=== PATIENT | female | born 2005 | race Caucasian/White ===

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

== ENCOUNTER → 2023-04-17 | Outpatient (CLI) | payer BC, OTHER | LOC: M WUC 12:22 | PROVIDERS: ATTEND Nurse Practitioner Family | DX: M25.572 Pain in left ankle and joints of left foot (principal) ==

== ENCOUNTER → 2024-03-15 | Outpatient (CLI) | payer BC, OTHER | LOC: M WUC 13:02 | PROVIDERS: ATTEND Nurse Practitioner Family | DX: R14.0 Abdominal distension (gaseous) (principal) ==

== ENCOUNTER → 2024-09-23 | Outpatient (REF) | payer BC ==
[~2024-09-23] MED LIST: ASCO500C3 PO; B-12100010 PO; ESTA0.25; LINZ72CA PO; META0.52 PO; VITA100093 PO
[2024-09-23 18:03] LABS: BASO % 0.5 % (0.0-1.0); EOS # 0.1 10^3/uL (0.0-0.5); EOS % 1.6 % (0.0-3.0); HEMOGLOBIN 12.1 g/dl (12.0-15.5); LYMPH # 2.2 10^3/uL (1.5-5.0); LYMPH % 26.2 % (24.0-44.0); MEAN CORPUSCULAR HEMOGLOBIN 25.8 pg (27.0-33.0); MEAN CORPUSCULAR VOLUME 83.2 fl (80.0-96.0); MONO # 0.5 10^3/uL (0.0-0.8); MONO % 6.4 % (2.0-8.0); NEUTROPHILS # 5.4 10^3/uL (1.5-8.5); NEUTROPHILS % 65.1 % (36.0-66.0); PLATELET COUNT, AUTOMATED 271 10^3/uL (150-450); RED BLOOD COUNT 4.69 10^6/uL (4.00-5.40); WHITE BLOOD COUNT 8.3 10^3/uL (4.0-10.0)
[2024-09-23 18:22] LABS: THYROID STIMULATING HORMONE 1.569 uIU/ML (0.55-4.78)
[2024-09-23 18:25] LABS: FREE T4 1.13 NG/DL (0.89-1.76)
== END ==
LOC: M SFHCADAM 15:06
PROVIDERS: ATTEND Physician Assistant Medical
DX: F41.1 Generalized anxiety disorder (principal)

== ENCOUNTER 2024-10-21 07:51 | Day surgery (SDC) | payer BC ==
[~2024-10-21] VITALS: Ht 170.2 cm; Wt 53.8 kg
[~2024-10-21 07:51] MED LIST changes: -ESTA0.25; +ESTA0.25 PO; +LEXA1TAB PO; +LIDOCAINE 2% 100MG/5ML SDV (FOR ANES.) As Ordered ONE; +propofoL 200 MG/20 ML VIAL As Ordered ONE
[2024-10-21 09:32] VITALS: TEMP 97.2
[2024-10-21 09:53] VITALS: BP 109/59; O2SAT 100
== END 2024-10-21 10:02 | disposition home or self-care (01) ==
LOC: M OPP 07:51
PROVIDERS: ATTEND Internal Medicine Gastroenterology
DX: K58.1 Irritable bowel syndrome with constipation (principal); K64.8 Other hemorrhoids; Z79.899 Other long term (current) drug therapy

== ENCOUNTER → 2024-12-17 | Outpatient (REF) | payer OTHER ==
[~2024-12-17] MED LIST changes: -LIDOCAINE 2% 100MG/5ML SDV (FOR ANES.) As Ordered ONE; -propofoL 200 MG/20 ML VIAL As Ordered ONE
== END ==
LOC: M LAB REF 16:45
PROVIDERS: ATTEND Physician Assistant
DX: R30.0 Dysuria (principal)

== ENCOUNTER → 2025-04-05 | Outpatient (REF) | payer BC ==
[2025-04-05 16:57] LABS: BASO # 0.1 10^3/uL (0.0-0.2); BASO % 0.8 % (0.0-1.0); EOS # 0.2 10^3/uL (0.0-0.5); EOS % 2.6 % (0.0-3.0); LYMPH # 2.5 10^3/uL (1.5-5.0); LYMPH % 32.9 % (24.0-44.0); MONO # 0.5 10^3/uL (0.0-0.8); MONO % 6.4 % (2.0-8.0); NEUTROPHILS # 4.4 10^3/uL (1.5-8.5); NEUTROPHILS % 57.0 % (36.0-66.0); PLATELET COUNT, AUTOMATED 209 10^3/uL (150-450)
[2025-04-05 17:34] LABS: IRON (FE) 92 UG/DL (50-170); PERCENT SATURATION 17.3 % (13.2-45.0)
[2025-04-05 17:37] LABS: VITAMIN B12 LEVEL 1333 PG/ML (211-911)
== END ==
LOC: M SFHCADAM 12:02
PROVIDERS: ATTEND Physician Assistant Medical
DX: G25.81 Restless legs syndrome (principal)

== ENCOUNTER → 2025-08-03 | Outpatient (REF) | payer BC ==
[2025-08-03 13:24] LABS: PLATELET COUNT, AUTOMATED 250 10^3/uL (150-450)
[2025-08-03 13:46] LABS: IRON (FE) 30.0 UG/DL (50-170); PERCENT SATURATION 5.9 % (13.2-45.0)
[2025-08-03 13:49] LABS: VITAMIN B12 LEVEL 408.0 PG/ML (211-911)
== END ==
LOC: M SFHCADAM 08:32
PROVIDERS: ATTEND Physician Assistant Medical
DX: E61.1 Iron deficiency (principal)